=== PATIENT | male | born 1960 | race Caucasian/White ===

== ENCOUNTER 2019-10-19 07:37 | Inpatient (IN) | payer BC ==
[2019-10-19] MEDS ORDERED: Sodium Chloride 0.9% 10 ML Syringe FLUSH PRN ×2 (08:12→08:13)
[2019-10-19] MEDS ORDERED: Piperacillin/Tazobactam 3.375 GM in Sodium Chloride 0.9% 50 ML IV SCH (08:15)
[2019-10-19] MEDS ORDERED: Lactated Ringers 1,000 ML IV SCH (08:15)
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
[2019-10-19] MEDS: Piperacillin/Tazobactam/Dext 3.375 GM in Premix Bag 1 BAG IV SCH ×3 (08:51→19:53)
[2019-10-19] MEDS ORDERED: Vancomycin 2 GM in Sodium Chloride 0.9% 500 ML IV SCH (09:30)
[2019-10-19] MEDS ORDERED: Lactated Ringers 1,000 ML IV ONE ×2 (10:19→11:26)
[2019-10-19] MEDS ORDERED: Acetaminophen/HYDROcodone 325-7.5 MG Tab PO STA (10:29)
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
[2019-10-19] MEDS ORDERED: Ondansetron 4 MG/2 ML SDV IV PRN (15:17)
[2019-10-19] MEDS ORDERED: Sodium Chloride 0.9% 1,000 ML IV SCH (15:17)
[2019-10-19] MEDS ORDERED: Warfarin 5 MG Tab PO SCH (15:17)
[2019-10-19] MEDS ORDERED: Magnesium Hydroxide 400 MG/5 ML Susp 30 ML Cup PO PRN (15:17)
[2019-10-19] MEDS ORDERED: LORazepam 2 MG/ML SDV IVPUSH PRN (15:17)
[2019-10-19] MEDS ORDERED: Ibuprofen 600 MG Tab PO PRN (15:17)
[2019-10-19] MEDS ORDERED: Ondansetron 4 MG Tab.DIS PO PRN (15:17)
[2019-10-19] MEDS ORDERED: HYDROmorphone 0.5 MG/0.5 ML Syringe IVPUSH PRN (15:45)
[2019-10-19] MEDS: Nicotine 21 MG/24 Hr Patch TRDERM SCH (16:29)
[2019-10-19] MEDS: Furosemide 40 MG Tab PO SCH (16:32)
[2019-10-19] MEDS: metFORMIN 500 MG Tab PO SCH (16:32)
[2019-10-19] MEDS: Lactobacillus Rhamnosus GG (Probiotic) Cap PO SCH (20:05)
[2019-10-19] MEDS ORDERED: Simvastatin 20 MG Tab PO SCH (21:00)
[2019-10-19] MEDS: Vancomycin 2 GM in Sodium Chloride 0.9% 500 ML IV SCH (21:31)
[2019-10-20] MEDS: Piperacillin/Tazobactam/Dext 3.375 GM in Premix Bag 1 BAG IV SCH ×4 (03:03→19:40)
[2019-10-20] MEDS: Furosemide 40 MG Tab PO SCH ×2 (07:52→17:10)
[2019-10-20] MEDS: metFORMIN 500 MG Tab PO SCH ×2 (07:52→17:11)
[2019-10-20] MEDS: Acetaminophen/HYDROcodone 325-7.5 MG Tab PO PRN ×2 (07:56→19:39)
[2019-10-20] MEDS ORDERED: Non-Formulary Medication 1 Each (Simvastatin [Simvastatin] 10 MG) PO SCH (09:00)
[2019-10-20] MEDS ORDERED: Non-Formulary Medication 1 Each (Sitagliptin [Januvia] 100 MG) PO SCH (09:00)
[2019-10-20] MEDS: Vancomycin 2 GM in Sodium Chloride 0.9% 500 ML IV SCH ×2 (09:19→21:23)
[2019-10-20] MEDS: Lactobacillus Rhamnosus GG (Probiotic) Cap PO SCH ×2 (09:19→21:23)
[2019-10-20] MEDS: Nicotine 21 MG/24 Hr Patch TRDERM SCH (09:20)
[2019-10-20] MEDS: Aspirin 81 MG Tab.Chew PO SCH (09:20)
[2019-10-20] MEDS: Lisinopril 5 MG Tab PO SCH (09:29)
[2019-10-20] MEDS: Simvastatin 20 MG Tab PO SCH (09:29)
--- NOTE | 2019-10-20 10:10 | PCM.PN ---
- General Info Date of Service: 10/20/19 Subjective Update: No acute events overnight. He did have some low-grade fevers. Pain in his feet and lower legs is better today and he was able to stand with less pain. Legs were wrapped with Coban yesterday and swelling is a little better but still has significant swelling. Cultures are negative so far. Tolerating antibiotics. No nausea or abdominal pain. White blood cell count has improved. Functional Status: Reports: Pain Controlled, Tolerating Diet - Review of Systems General: Denies: Fever Musculoskeletal: Reports: Leg Pain, Foot Pain - Patient Data Vitals - Most Recent: Last Vital Signs Temp 36.3 C 10/20/19 07:43 Pulse 85 10/20/19 07:43 Resp 16 10/20/19 07:43 BP 115/53 L 10/20/19 09:29 Pulse Ox 91 L 10/20/19 07:43 Weight - Most Recent: 136.078 kg I&O - Last 24 Hours: Intake & Output 10/19/19 10/20/19 10/20/19 22:59 06:59 14:59 Intake Total 550 1245 1380 Output Total 1300 500 Balance -886 423 1423 Lab Results Last 24 Hours: Laboratory Results - last 24 hr 10/19/19 10/20/19 10/20/19 Range/Units 10:30 05:53 05:53 WBC 9.2 (4.5-11.0) K/uL RBC 4.32 (4.30-5.90) M/uL Hgb 12.2 (12.0-15.0) g/dL Hct 38.9 L (40.0-54.0) % MCV 90 (80-98) fL MCH 28 (27-31) pg MCHC 31 L (32-36) % Plt Count 264 (150-400) K/uL PT 27.4 H (9.5-12.0) sec INR 2.68 H (0.80-1.20) Sodium (140-148) mmol/L Potassium (3.6-5.2) mmol/L Chloride (100-108) mmol/L Carbon Dioxide (21-32) mmol/L Anion Gap (5.0-14.0) mmol/L BUN (7-18) mg/dL Creatinine (0.8-1.3) mg/dL Est Cr Clr Drug Dosing mL/min Estimated GFR (MDRD) (>60) Glucose (74-106) mg/dL Calcium (8.5-10.1) mg/dL Urine Color Yellow (YELLOW) Urine Appearance Clear (CLEAR) Urine pH 5.5 (5.0-8.0) Ur Specific [place] 1.015 (1.008-1.030) Urine Protein Negative (NEGATIVE) mg/dL Urine Glucose (UA) Negative (NEGATIVE) mg/dL Urine Ketones Negative (NEGATIVE) mg/dL Urine Occult Blood Moderate H (NEGATIVE) Urine Nitrite Negative (NEGATIVE) Urine Bilirubin Negative (NEGATIVE) Urine Urobilinogen 0.2 (0.2-1.0) EU/dL Ur Leukocyte Esterase Negative (NEGATIVE) Urine RBC 5-10 H (0-5) Urine WBC Not seen (0-5) Ur Epithelial Cells Not seen Amorphous Sediment Few Urine Bacteria Not seen Urine Mucus Not seen Urine Other See note 10/20/19 Range/Units 05:53 WBC (4.5-11.0) K/uL RBC (4.30-5.90) M/uL Hgb (12.0-15.0) g/dL Hct (40.0-54.0) % MCV (80-98) fL MCH (27-31) pg MCHC (32-36) % Plt Count (150-400) K/uL PT (9.5-12.0) sec INR (0.80-1.20) Sodium 139 L (140-148) mmol/L Potassium 3.9 (3.6-5.2) mmol/L Chloride 104 (100-108) mmol/L Carbon Dioxide 28 (21-32) mmol/L Anion Gap 10.9 (5.0-14.0) mmol/L BUN 12 D (7-18) mg/dL Creatinine 0.8 (0.8-1.3) mg/dL Est Cr Clr Drug Dosing 104.27 mL/min Estimated GFR (MDRD) > 60 (>60) Glucose 95 (74-106) mg/dL Calcium 8.1 L (8.5-10.1) mg/dL Urine Color (YELLOW) Urine Appearance (CLEAR) Urine pH (5.0-8.0) Ur Specific [place] (1.008-1.030) Urine Protein (NEGATIVE) mg/dL Urine Glucose (UA) (NEGATIVE) mg/dL Urine Ketones (NEGATIVE) mg/dL Urine Occult Blood (NEGATIVE) Urine Nitrite (NEGATIVE) Urine Bilirubin (NEGATIVE) Urine Urobilinogen (0.2-1.0) EU/dL Ur Leukocyte Esterase (NEGATIVE) Urine RBC (0-5) Urine WBC (0-5) Ur Epithelial Cells Amorphous Sediment Urine Bacteria Urine Mucus Urine Other Manuel Results Last 24 Hours: Microbiology 10/19/19 08:28 Aerobic Blood Culture - Preliminary Blood - Arm, Right NO GROWTH AFTER 1 DAY Anaerobic Blood Culture - Preliminary NO GROWTH AFTER 1 DAY 10/19/19 08:20 Aerobic Blood Culture - Preliminary Blood - Venous NO GROWTH AFTER 1 DAY Anaerobic Blood Culture - Preliminary NO GROWTH AFTER 1 DAY Med Orders - Current: Current Medications Hydrocodone Bitart/Acetaminophen ([place] 325-7.5 Mg) 1 tab PO Q4H PRN PRN Reason: Pain Last Admin: 10/20/19 07:56 Dose: 1 tab Alogliptin Benzoate (Alogliptin) 25 mg PO DAILY [facility] Last Admin: 10/20/19 09:19 Dose: 25 mg Aspirin (Aspirin) 81 mg PO DAILY [facility] Last Admin: 10/20/19 09:20 Dose: 81 mg Furosemide (Lasix) 40 mg PO BID@0800,1500 [facility] Last Admin: 10/20/19 07:52 Dose: 40 mg Glyburide (Micronase) 5 mg PO BIDMEALS [facility] Last Admin: 10/20/19 07:52 Dose: 5 mg Hydromorphone HCl (Dilaudid) 0.5 mg IVPUSH Q2H PRN PRN Reason: SEVERE PAIN (7-10) Sodium Chloride (Normal Saline) 1,000 mls @ 25 mls/hr IV ASDIRECTED [facility] Last Admin: 10/19/19 16:28 Dose: 25 mls/hr Piperacillin/Tazobactam/ (Dextrose 3.375 gm/ Premix) 50 mls @ 100 mls/hr IV Q6H [facility] Last Admin: 10/20/19 07:57 Dose: 100 mls/hr Vancomycin HCl 2 gm/ Sodium (Chloride) 500 mls @ 250 mls/hr IV Q12H [facility] Last Admin: 10/20/19 09:19 Dose: 250 mls/hr Ibuprofen (Motrin) 600 mg PO Q6H PRN PRN Reason: Pain/Fever Lactobacillus Rhamnosus (Culturelle) 1 cap PO BID [facility] Last Admin: 10/20/19 09:19 Dose: 1 cap Lisinopril (Prinivil) 5 mg PO DAILY [facility] Last Admin: 10/20/19 09:29 Dose: 5 mg Lorazepam (Ativan) 0.5 mg IVPUSH Q4H PRN PRN Reason: Nausea/Vomiting Magnesium Hydroxide (Milk Of Magnesia) 30 ml PO Q12H PRN PRN Reason: Constipation Metformin HCl (Glucophage) 500 mg PO BIDMEALS [facility] Last Admin: 10/20/19 07:52 Dose: 500 mg Nicotine (Habitrol) 21 mg TRDERM DAILY [facility] Last Admin: 10/20/19 09:20 Dose: 21 mg Ondansetron HCl (Zofran Odt) 4 mg PO Q6H PRN PRN Reason: Nausea able to take PO Ondansetron HCl (Zofran) 4 mg IV Q6H PRN PRN Reason: Nausea/Vomiting Senna/Docusate Sodium (Senna Plus) 1 tab PO BID PRN PRN Reason: Constipation Simvastatin (Zocor) 10 mg PO DAILY [facility] Last Admin: 10/20/19 09:29 Dose: 10 mg Sodium Chloride (Saline Flush) 10 ml FLUSH ASDIRECTED PRN PRN Reason: Keep Vein Open Last Admin: 10/19/19 08:32 Dose: 10 ml Warfarin Sodium 2.5 mg/ (Warfarin Sodium 5 mg) 7.5 mg PO DAILY@1300 [facility] Discontinued Medications Hydrocodone Bitart/Acetaminophen ([place] 325-7.5 Mg) 1 tab PO NOW STA Stop: 10/19/19 10:30 Last Admin: 10/19/19 10:42 Dose: 1 tab Lactated Ringer's (Ringers, Lactated) 1,000 mls @ 999 mls/hr IV ASDIRECTED [facility] Last Admin: 10/19/19 08:30 Dose: 999 mls/hr Piperacillin/Tazobactam/ (Dextrose 3.375 gm/ Premix) 50 mls @ 100 mls/hr IV Q6H [facility] Last Admin: 10/19/19 14:26 Dose: 100 mls/hr Vancomycin HCl 2 gm/ Sodium (Chloride) 500 mls @ 300 mls/hr IV Q12H [facility] Last Admin: 10/19/19 08:59 Dose: 300 mls/hr Lactated Ringer's (Ringers, Lactated) 1,000 mls @ 999 mls/hr IV BOLUS ONE Stop: 10/19/19 11:19 Last Admin: 10/19/19 10:23 Dose: 999 mls/hr Lactated Ringer's (Ringers, Lactated) 1,000 mls @ 125 mls/hr IV BOLUS ONE Stop: 10/19/19 19:25 Last Admin: 10/19/19 11:28 Dose: 125 mls/hr Sodium Chloride (Saline Flush) 10 ml FLUSH ASDIRECTED PRN PRN Reason: Keep Vein Open Last Admin: 10/19/19 08:31 Dose: 10 ml - Exam Quality Assessment: No: Supplemental Oxygen General: Alert, Oriented, Cooperative, No Acute Distress Lungs: Normal Respiratory Effort Cardiovascular: Regular Rate, Regular Rhythm GI/Abdominal Exam: Soft, No Distention Extremities: Other (both lower legs wrapped with Coban from below the knee to the toes ) Psy/Mental Status: Alert, Normal Affect - Problem List & Annotations (1) Cellulitis of right lower extremity SNOMED Code(s): 328002185 Code(s): L03.115 - CELLULITIS OF RIGHT LOWER LIMB Status: Acute Current Visit: Yes (2) Lymphedema SNOMED Code(s): 716393000 Code(s): I89.0 - LYMPHEDEMA, NOT ELSEWHERE CLASSIFIED Status: Acute Current Visit: Yes (3) DM II (diabetes mellitus, type II), controlled SNOMED Code(s): 55814622, 044421258 Code(s): E11.9 - TYPE 2 DIABETES MELLITUS WITHOUT COMPLICATIONS Status: Chronic Current Visit: Yes Qualifiers: Diabetes mellitus long winder tender insulin use: without long winder tender use Diabetes mellitus complication status: with neurologic complications Diabetes mellitus complication detail: with polyneuropathy Qualified Code(s): E11.42 - Type 2 diabetes mellitus with diabetic polyneuropathy (4) Tobacco dependence SNOMED Code(s): 15259240 Code(s): F17.200 - NICOTINE DEPENDENCE, UNSPECIFIED, UNCOMPLICATED Status: Chronic Current Visit: Yes - Problem List Review Problem List Initiated/Reviewed/Updated: Yes - My Orders Last 24 Hours: My Active Orders 10/19/19 14:35 Resuscitation Status Routine 10/19/19 15:17 Patient Status [ADT] Routine Communication Order [RC] PRN Communication Order [RC] PRN Diabetes Education [RC] Click to Edit Intake and Output [RC] QSHIFT Notify Provider Consults [RC] ASDIRECTED Notify Provider Vital Signs [RC] ASDIRECTED Notify Provider [RC] PRN Oxygen Therapy [RC] PRN Up With Assistance [RC] ASDIRECTED Vital Signs [RC] Q4H Consult to Physician [CONS] Routine Acetaminophen/HYDROcodone [[place] 325-7.5 MG] 1 tab PO Q4H PRN Docusate Sodium/Sennosides [Senna Plus] 1 tab PO BID PRN Ibuprofen [Motrin] 600 mg PO Q6H PRN LORazepam [Ativan] 0.5 mg IVPUSH Q4H PRN Magnesium Hydroxide [Milk of Magnesia] 30 ml PO Q12H PRN Ondansetron [Zofran ODT] 4 mg PO Q6H PRN Ondansetron [Zofran] 4 mg IV Q6H PRN Sodium Chloride 0.9% [Normal Saline] 1,000 ml IV ASDIRECTED VTE Mechanical Contraindications [AST] Routine 10/19/19 15:45 HYDROmorphone [Dilaudid] 0.5 mg IVPUSH Q2H PRN 10/19/19 16:15 Furosemide [Lasix] 40 mg PO BID@0800,1500 Nicotine [Habitrol] 21 mg TRDERM DAILY 10/19/19 17:00 glyBURIDE [Micronase] 5 mg PO BIDMEALS metFORMIN [Glucophage] 500 mg PO BIDMEALS 10/19/19 21:00 Lactobacillus Rhamnosus GG [Culturelle] 1 cap PO BID 10/19/19 Dinner Consistent Carbohydrate Diet [DIET] 10/20/19 09:00 Alogliptin Benzoate [Alogliptin] 25 mg PO DAILY Aspirin 81 mg PO DAILY Lisinopril [Prinivil] 5 mg PO DAILY Simvastatin [Zocor] 10 mg PO DAILY 10/20/19 13:00 Warfarin [Coumadin] 7.5 mg PO DAILY@1300 10/20/19 17:00 GLUCOSE POC LAB TO COLLECT [POC] BIDAC 10/21/19 05:00 BASIC METABOLIC PANEL,BMP [CHEM] Timed CBC W/O DIFF,HEMOGRAM [HEME] Timed (1) INR,PT,PROTHROMBIN TIME [COAG] Timed 10/21/19 08:00 GLUCOSE POC LAB TO COLLECT [POC] BIDAC 10/21/19 17:00 GLUCOSE POC LAB TO COLLECT [POC] BIDAC 10/22/19 08:00 GLUCOSE POC LAB TO COLLECT [POC] BIDAC 10/22/19 17:00 GLUCOSE POC LAB TO COLLECT [POC] BIDAC 10/23/19 08:00 GLUCOSE POC LAB TO COLLECT [POC] BIDAC 10/23/19 17:00 GLUCOSE POC LAB TO COLLECT [POC] BIDAC - Plan Plan:: ASSESSMENT AND PLAN - Cellulitis of the right lower extremity-likely complication of his lymphedema. Pain has decreased. Only low-grade fevers overnight. Blood cultures negative so far. 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 INR is currently therapeutic. He has lymphedema as a result of the venous damage I suspect. -Consult with Dr. Lee for wound care -Continue warfarin Type 2 diabetes mellitus-controlled during the hospital stay so far. -Continue home medications -Twice daily Accu-Cheks, consider sliding scale if sugars are elevated Tobacco dependence-encourage cessation. -Nicotine patch Maintenance issues - - DVT prophylaxis -warfarin - GI prophylaxis -not indicated - Nutrition - consistent carbohydrate - Rivas catheter -not indicated Disposition -I would anticipate discharge home after the hospital stay Primary care physician -Dr. Fred Win M.D.
[2019-10-20] MEDS: Warfarin 2.5 MG, Warfarin 5 MG PO SCH ×2 (13:51)
[2019-10-21] MEDS: Piperacillin/Tazobactam/Dext 3.375 GM in Premix Bag 1 BAG IV SCH ×3 (03:08→14:25)
[2019-10-21] MEDS: metFORMIN 500 MG Tab PO SCH ×2 (07:54→17:38)
[2019-10-21] MEDS: Furosemide 40 MG Tab PO SCH (07:55)
[2019-10-21] MEDS: Acetaminophen/HYDROcodone 325-7.5 MG Tab PO PRN ×3 (07:57→22:50)
[2019-10-21] MEDS: Nicotine 21 MG/24 Hr Patch TRDERM SCH (08:52)
[2019-10-21] MEDS: Aspirin 81 MG Tab.Chew PO SCH (08:53)
[2019-10-21] MEDS: Lactobacillus Rhamnosus GG (Probiotic) Cap PO SCH ×2 (08:53→20:28)
[2019-10-21] MEDS: Lisinopril 5 MG Tab PO SCH (08:53)
[2019-10-21] MEDS: Simvastatin 20 MG Tab PO SCH (08:54)
[2019-10-21] MEDS ORDERED: Potassium Chloride 20 MEQ Tab.ER PO ONE (09:00)
[2019-10-21] MEDS: Vancomycin 2 GM in Sodium Chloride 0.9% 500 ML IV SCH (09:28)
--- NOTE | 2019-10-21 10:04 | PCM.PN ---
- General Info Date of Service: 10/21/19 Subjective Update: There were no acute events overnight. Pain in the lower legs and feet has continued to improve. He is able to stand without severe pain at this time. He has not had any fevers. Swelling seems a little better today. White count is normal. Cultures are negative. Tolerating current antibiotics. Blood sugar was a little low this morning but did respond to food. Functional Status: Reports: Pain Controlled, Tolerating Diet - Review of Systems General: Denies: Fever Musculoskeletal: Reports: Foot Pain - Patient Data Vitals - Most Recent: Last Vital Signs Temp 36.7 C 10/21/19 07:00 Pulse 66 10/21/19 07:00 Resp 14 10/21/19 07:00 BP 118/65 10/21/19 09:32 Pulse Ox 97 10/21/19 07:00 Weight - Most Recent: 136.078 kg I&O - Last 24 Hours: Intake & Output 10/20/19 10/21/19 10/21/19 22:59 06:59 14:59 Intake Total 1059 1288 1022 Output Total 1100 1300 750 Balance -41 -12 272 Lab Results Last 24 Hours: Laboratory Results - last 24 hr 10/21/19 10/21/19 10/21/19 Range/Units 04:10 04:10 04:10 WBC 9.4 (4.5-11.0) K/uL RBC 4.50 (4.30-5.90) M/uL Hgb 12.4 (12.0-15.0) g/dL Hct 40.9 (40.0-54.0) % MCV 91 (80-98) fL MCH 28 (27-31) pg MCHC 30 L (32-36) % Plt Count 277 (150-400) K/uL PT 21.0 H (9.5-12.0) sec INR 2.02 H (0.80-1.20) Sodium 138 L (140-148) mmol/L Potassium 3.3 L (3.6-5.2) mmol/L Chloride 102 (100-108) mmol/L Carbon Dioxide 29 (21-32) mmol/L Anion Gap 10.3 (5.0-14.0) mmol/L BUN 8 (7-18) mg/dL Creatinine 0.8 (0.8-1.3) mg/dL Est Cr Clr Drug Dosing 104.27 mL/min Estimated GFR (MDRD) > 60 (>60) Glucose 80 (74-106) mg/dL Calcium 7.9 L (8.5-10.1) mg/dL Manuel Results Last 24 Hours: Microbiology 10/19/19 08:28 Aerobic Blood Culture - Preliminary Blood - Arm, Right NO GROWTH AFTER 2 DAYS Anaerobic Blood Culture - Preliminary NO GROWTH AFTER 2 DAYS 10/19/19 08:20 Aerobic Blood Culture - Preliminary Blood - Venous NO GROWTH AFTER 2 DAYS Anaerobic Blood Culture - Preliminary NO GROWTH AFTER 2 DAYS Med Orders - Current: Current Medications Hydrocodone Bitart/Acetaminophen ([place] 325-7.5 Mg) 1 tab PO Q4H PRN PRN Reason: Pain Last Admin: 10/21/19 07:57 Dose: 1 tab Alogliptin Benzoate (Alogliptin) 25 mg PO DAILY [facility] Last Admin: 10/21/19 08:53 Dose: 25 mg Aspirin (Aspirin) 81 mg PO DAILY [facility] Last Admin: 10/21/19 08:53 Dose: 81 mg Furosemide (Lasix) 40 mg PO BID@0800,1500 [facility] Last Admin: 10/21/19 07:55 Dose: 40 mg Glyburide (Micronase) 5 mg PO BIDMEALS [facility] Last Admin: 10/21/19 07:55 Dose: 5 mg Hydromorphone HCl (Dilaudid) 0.5 mg IVPUSH Q2H PRN PRN Reason: SEVERE PAIN (7-10) Sodium Chloride (Normal Saline) 1,000 mls @ 25 mls/hr IV ASDIRECTED [facility] Last Admin: 10/19/19 16:28 Dose: 25 mls/hr Piperacillin/Tazobactam/ (Dextrose 3.375 gm/ Premix) 50 mls @ 100 mls/hr IV Q6H [facility] Last Admin: 10/21/19 08:41 Dose: 100 mls/hr Vancomycin HCl 2 gm/ Sodium (Chloride) 500 mls @ 250 mls/hr IV Q12H [facility] Last Admin: 10/21/19 09:28 Dose: 250 mls/hr Ibuprofen (Motrin) 600 mg PO Q6H PRN PRN Reason: Pain/Fever Lactobacillus Rhamnosus (Culturelle) 1 cap PO BID [facility] Last Admin: 10/21/19 08:53 Dose: 1 cap Lisinopril (Prinivil) 5 mg PO DAILY [facility] Last Admin: 10/21/19 08:53 Dose: 5 mg Lorazepam (Ativan) 0.5 mg IVPUSH Q4H PRN PRN Reason: Nausea/Vomiting Magnesium Hydroxide (Milk Of Magnesia) 30 ml PO Q12H PRN PRN Reason: Constipation Metformin HCl (Glucophage) 500 mg PO BIDMEALS [facility] Last Admin: 10/21/19 07:54 Dose: 500 mg Nicotine (Habitrol) 21 mg TRDERM DAILY [facility] Last Admin: 10/21/19 08:52 Dose: 21 mg Ondansetron HCl (Zofran Odt) 4 mg PO Q6H PRN PRN Reason: Nausea able to take PO Ondansetron HCl (Zofran) 4 mg IV Q6H PRN PRN Reason: Nausea/Vomiting Senna/Docusate Sodium (Senna Plus) 1 tab PO BID PRN PRN Reason: Constipation Simvastatin (Zocor) 10 mg PO DAILY [facility] Last Admin: 10/21/19 08:54 Dose: 10 mg Sodium Chloride (Saline Flush) 10 ml FLUSH ASDIRECTED PRN PRN Reason: Keep Vein Open Last Admin: 10/19/19 08:32 Dose: 10 ml Warfarin Sodium 2.5 mg/ (Warfarin Sodium 5 mg) 7.5 mg PO DAILY@1300 [facility] Last Admin: 10/20/19 13:51 Dose: 7.5 mg Discontinued Medications Hydrocodone Bitart/Acetaminophen ([place] 325-7.5 Mg) 1 tab PO NOW STA Stop: 10/19/19 10:30 Last Admin: 10/19/19 10:42 Dose: 1 tab Lactated Ringer's (Ringers, Lactated) 1,000 mls @ 999 mls/hr IV ASDIRECTED [facility] Last Admin: 10/19/19 08:30 Dose: 999 mls/hr Piperacillin/Tazobactam/ (Dextrose 3.375 gm/ Premix) 50 mls @ 100 mls/hr IV Q6H [facility] Last Admin: 10/19/19 14:26 Dose: 100 mls/hr Vancomycin HCl 2 gm/ Sodium (Chloride) 500 mls @ 300 mls/hr IV Q12H [facility] Last Admin: 10/19/19 08:59 Dose: 300 mls/hr Lactated Ringer's (Ringers, Lactated) 1,000 mls @ 999 mls/hr IV BOLUS ONE Stop: 10/19/19 11:19 Last Admin: 10/19/19 10:23 Dose: 999 mls/hr Lactated Ringer's (Ringers, Lactated) 1,000 mls @ 125 mls/hr IV BOLUS ONE Stop: 10/19/19 19:25 Last Admin: 10/19/19 11:28 Dose: 125 mls/hr Potassium Chloride (Klor-Con M20) 40 meq PO ONETIME ONE Stop: 10/21/19 09:01 Last Admin: 10/21/19 09:01 Dose: 40 meq Sodium Chloride (Saline Flush) 10 ml FLUSH ASDIRECTED PRN PRN Reason: Keep Vein Open Last Admin: 10/19/19 08:31 Dose: 10 ml - Exam Quality Assessment: No: Supplemental Oxygen General: Alert, Oriented, Cooperative, No Acute Distress Lungs: Normal Respiratory Effort Cardiovascular: Regular Rate, Regular Rhythm GI/Abdominal Exam: Soft, No Distention Extremities: Pedal Edema, Other (both legs wrapped with Coban from foot to below the knee ) Skin: Warm, Dry Psy/Mental Status: Alert, Normal Affect - Problem List & Annotations (1) Cellulitis of right lower extremity SNOMED Code(s): 074016804 Code(s): L03.115 - CELLULITIS OF RIGHT LOWER LIMB Status: Acute Current Visit: Yes (2) Lymphedema SNOMED Code(s): 585723676 Code(s): I89.0 - LYMPHEDEMA, NOT ELSEWHERE CLASSIFIED Status: Acute Current Visit: Yes (3) DM II (diabetes mellitus, type II), controlled SNOMED Code(s): 99546295, 648348770 Code(s): E11.9 - TYPE 2 DIABETES MELLITUS WITHOUT COMPLICATIONS Status: Chronic Current Visit: Yes Qualifiers: Diabetes mellitus turkish line attendant insulin use: without usp use Diabetes mellitus complication status: with neurologic complications Diabetes mellitus complication detail: with polyneuropathy Qualified Code(s): E11.42 - Type 2 diabetes mellitus with diabetic polyneuropathy (4) Tobacco dependence SNOMED Code(s): 01511819 Code(s): F17.200 - NICOTINE DEPENDENCE, UNSPECIFIED, UNCOMPLICATED Status: Chronic Current Visit: Yes - Problem List Review Problem List Initiated/Reviewed/Updated: Yes - My Orders Last 24 Hours: My Active Orders 10/20/19 13:00 Warfarin [Coumadin] 7.5 mg PO DAILY@1300 10/21/19 17:00 GLUCOSE POC LAB TO COLLECT [POC] BIDAC 10/21/19 21:00 Doxycycline [Vibramycin] 100 mg PO BID 10/22/19 05:00 BASIC METABOLIC PANEL,BMP [CHEM] Timed CBC W/O DIFF,HEMOGRAM [HEME] Timed (1) INR,PT,PROTHROMBIN TIME [COAG] Timed 10/22/19 08:00 GLUCOSE POC LAB TO COLLECT [POC] BIDAC 10/22/19 09:00 Furosemide [Lasix] 40 mg PO DAILY 10/22/19 17:00 GLUCOSE POC LAB TO COLLECT [POC] BIDAC 10/23/19 08:00 GLUCOSE POC LAB TO COLLECT [POC] BIDAC 10/23/19 17:00 GLUCOSE POC LAB TO COLLECT [POC] BIDAC - Plan Plan:: ASSESSMENT AND PLAN - Cellulitis of the right lower extremity-likely complication of his lymphedema. Pain has decreased. No fevers. Cultures still negative. Clinically improving. 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 INR is currently therapeutic. He has lymphedema as a result of the venous damage I suspect. -Consult with Dr. Lee for wound care, planning to re-wrap legs today -Continue warfarin Type 2 diabetes mellitus-mild hypoglycemia this morning but improving with food. -Continue metformin -Hold glyburide -Twice daily Accu-Cheks, consider sliding scale if sugars are elevated Tobacco dependence-encourage cessation. -Nicotine patch Maintenance issues - - DVT prophylaxis -warfarin - GI prophylaxis -not indicated - Nutrition - consistent carbohydrate - Rivas catheter -not indicated Disposition -I would anticipate discharge home after the hospital stay Primary care physician -Dr. Fred Win M.D.
[2019-10-21] MEDS: Warfarin 2.5 MG, Warfarin 5 MG PO SCH ×2 (13:13)
--- NOTE | 2019-10-21 16:20 | PN ---
DATE OF SERVICE: 10/21/2019 SUBJECTIVE: The patient continues to improve. His pain is well controlled. No nausea, vomiting, shortness of breath, chest pain. Legs are healing quite well. No evidence of cellulitis. ASSESSMENT: Lipodermatosclerosis/venous ulcers. PLAN: We will recompression wrap him today. He is to leave this on until , which he will follow up with us to remove and all dressings on morning. Shower, soap and water. Report to clinic for probable re-dressing. Mehdi Lee MD /[id number]
[2019-10-21] MEDS: Doxycycline 100 MG Cap PO SCH (20:28)
[2019-10-22] MEDS: metFORMIN 500 MG Tab PO SCH (08:29)
[2019-10-22] MEDS: Nicotine 21 MG/24 Hr Patch TRDERM SCH (08:30)
[2019-10-22] MEDS: Lactobacillus Rhamnosus GG (Probiotic) Cap PO SCH (08:30)
[2019-10-22] MEDS: Aspirin 81 MG Tab.Chew PO SCH (08:30)
[2019-10-22] MEDS: Lisinopril 5 MG Tab PO SCH (08:31)
[2019-10-22] MEDS: Simvastatin 20 MG Tab PO SCH (08:35)
[2019-10-22] MEDS: Doxycycline 100 MG Cap PO SCH (08:35)
[2019-10-22] MEDS ORDERED: Furosemide 40 MG Tab PO SCH (09:00)
--- NOTE | 2019-10-22 09:54 | PCM.DCSUM1 ---
Discharge Summary - Hospital Course Brief History: 59-year-old male with history of tobacco dependence, type 2 diabetes mellitus that is uncontrolled and chronic edema of both lower extremities who presented with syncope. He was admitted for management of right lower extremity cellulitis and chronic edema management. Diagnosis: Stroke: No - Discharge Data Discharge Date: 10/22/19 Discharge Disposition: Home, Self-Care 01 Condition: Good - Referral to Home Health Primary Care Physician: PCP None - Discharge Diagnosis/Problem(s) (1) Cellulitis of right lower extremity SNOMED Code(s): 969037769 ICD Code: L03.115 - CELLULITIS OF RIGHT LOWER LIMB Status: Acute Current Visit: Yes (2) Lymphedema SNOMED Code(s): 168536768 ICD Code: I89.0 - LYMPHEDEMA, NOT ELSEWHERE CLASSIFIED Status: Acute Current Visit: Yes (3) DM II (diabetes mellitus, type II), controlled SNOMED Code(s): 19904732, 404085896 ICD Code: E11.9 - TYPE 2 DIABETES MELLITUS WITHOUT COMPLICATIONS Status: Chronic Current Visit: Yes Qualifiers: Diabetes mellitus [facility] insulin use: without [facility] use Diabetes mellitus complication status: with neurologic complications Diabetes mellitus complication detail: with polyneuropathy Qualified Code(s): E11.42 - Type 2 diabetes mellitus with diabetic polyneuropathy (4) Tobacco dependence SNOMED Code(s): 93880473 ICD Code: F17.200 - NICOTINE DEPENDENCE, UNSPECIFIED, UNCOMPLICATED Status : Chronic Current Visit: Yes - Patient Summary/Data Consults: Consultations 10/19/19 15:17 Consult to Physician [CONS] Routine Consulting Provider: Mehdi Lee Call Completed to Consulting Physician: Yes Reason for Consult: bilateral edema, lymphedema Person Notified: RW Date Notified: 10/19/19 Hospital Course: Michael presented to the emergency room after an episode of syncope at work. Work- up in the emergency room was suggestive of acute cellulitis of the right lower extremity complicating chronic edema of both lower extremities. He had severe pain from the significant swelling and inflammation/infection. There was no evidence for sepsis at the time of presentation. He received IV fluids and cultures were obtained. He was started on broad-spectrum antibiotics including vancomycin and Pip/Tazo. He was admitted to the hospital for further management. We did consult Dr. Lee shortly after admission to help with chronic wound management. He applied Coban 2 wrapping system to both lower extremities from the feet up to just below the knee. Over the next 48 hours following admission we did see steady improvement. The swelling in both legs improved with the Coban wrapping system. He has had a couple of low-grade fevers but no true fevers. Cultures have all been negative. Pain has been steadily improving. His white blood cell count has normalized. He did have a couple of low morning blood sugars but these responded quickly to glucose administration. We did hold his sulfonylurea during the hospital stay. On the day of discharge he is feeling well. Pain is minimal at this time and he has been ambulating some. New Coban wraps were applied the day before discharge and will stay in place until his follow-up next . He has been transitioned to doxycycline which he seems to be tolerating well so far. He has follow-up with his primary care scheduled on Friday. INR has remained therapeutic during hospital stay. - Patient Instructions Diet: Diabetic Diet Activity: As Tolerated Showering/Bathing: No Showering (cover lower legs with garbage bag and secure with tape if showering ) Notify Provider of: Fever, Increased Pain, Nausea and/or Vomiting Other/Special Instructions: 1. You were in the hospital for management of cellulitis of the right lower extremity complicating chronic edema of both lower extremities. Your condition has been improving with antibiotic therapy and wrapping of the lower legs with the Coban 2 system. I do recommend ongoing antibiotic therapy with doxycycline. Please take 100 mg twice daily with food. Your next dose is due tonight. You should leave the Coban dressings in place until your follow-up with Dr. Lee next week. If they become loose you can secure them with tape or with Jorge wraps over the top of the Coban wrapping. 2. Follow up with Dr. Ryan next Friday. You should have your INR checked at the time of that visit. 3. Follow up with Dr. Lee next . 4. Continue your usual home medications as previously prescribed including the warfarin. 5. Seek medical attention if you have fever greater than 101, severe pain in your lower extremities, severe diarrhea or if you develop persistent nausea and vomiting. - Discharge Plan *PRESCRIPTION DRUG MONITORING PROGRAM REVIEWED*: No *COPY OF PRESCRIPTION DRUG MONITORING REPORT IN PATIENT MANNY: No Prescriptions/Med Rec: Doxycycline [Vibramycin] 100 mg PO BID #12 cap Nicotine [Habitrol] 21 mg TRDERM DAILY #30 patch Home Medications: Home Meds Aspirin 81 mg PO DAILY 10/19/19 [History] Furosemide 40 mg PO BID 10/19/19 [History] Hydrocodone/Acetaminophen [Hydrocodon-Acetaminoph 7.5-325] 1 tab PO ASDIRECTED PRN 10/19/19 [History] Lisinopril 5 mg PO DAILY 10/19/19 [History] Simvastatin 10 mg PO DAILY 10/19/19 [History] SitaGLIPtin [Januvia] 100 mg PO DAILY 10/19/19 [History] Warfarin [Coumadin] 10 mg PO ASDIRECTED 10/19/19 [History] glyBURIDE [Glyburide] 5 mg PO BID 10/19/19 [History] metFORMIN [Glucophage] 500 mg PO BID 10/19/19 [History] Doxycycline [Vibramycin] 100 mg PO BID #12 cap 10/22/19 [Rx] Nicotine [Habitrol] 21 mg TRDERM DAILY #30 patch 10/22/19 [Rx] Oxygen Therapy Mode: Room Air Patient Handouts: Doxycycline tablets or capsules, Cellulitis, Adult, Easy-to- Read Referrals: Fred Ryan MD [Ordering Only Provider] - 10/25/19 11:00 am (Please arrive 15 minutes early to register for your appointment.) Mehdi Lee MD [Physician] - 10/28/19 1:00 pm (Confirmed appointment with [facility] 10/21/19 at 1600) - Discharge Summary/Plan Comment DC Time >30 min.: No - Patient Data Vitals - Most Recent: Last Vital Signs Temp 36.7 C 10/22/19 07:00 Pulse 68 10/22/19 07:00 Resp 16 10/22/19 07:00 BP 140/77 10/22/19 08:31 Pulse Ox 95 10/22/19 07:00 Weight - Most Recent: 136.078 kg I&O - Last 24 hours: Intake & Output 10/21/19 10/22/19 10/22/19 22:59 06:59 14:59 Intake Total 1200 1254 Balance 1200 1254 Lab Results - Last 24 hrs: Laboratory Results - last 24 hr 10/22/19 10/22/1910/22/19 Range/Units 04:20 04:20 05:00 WBC 9.8 (4.5-11.0) K/uL RBC 4.98 (4.30-5.90) M/uL Hgb 14.0 (12.0-15.0) g/dL Hct 45.0 (40.0-54.0) % MCV 90 (80-98) fL MCH 28 (27-31) pg MCHC 31 L (32-36) % Plt Count 266 (150-400) K/uL PT 25.8 H (9.5-12.0) sec INR 2.52 H (0.80-1.20) Sodium 137 L (140-148) mmol/L Potassium 4.1 (3.6-5.2) mmol/L Chloride 101 (100-108) mmol/L Carbon Dioxide 28 (21-32) mmol/L Anion Gap 12.1 (5.0-14.0) mmol/L BUN 11 (7-18) mg/dL Creatinine 0.8 (0.8-1.3) mg/dL Est Cr Clr Drug Dosing 104.27 mL/min Estimated GFR (MDRD) > 60 (>60) Glucose 70 L (74-106) mg/dL Calcium 8.6 (8.5-10.1) mg/dL CINDY Results - Last 24 hrs: Microbiology 10/19/19 08:28 Aerobic Blood Culture - Preliminary Blood - Arm, Right NO GROWTH AFTER 3 DAYS Anaerobic Blood Culture - Preliminary NO GROWTH AFTER 3 DAYS 10/19/19 08:20 Aerobic Blood Culture - Preliminary Blood - Venous NO GROWTH AFTER 3 DAYS Anaerobic Blood Culture - Preliminary NO GROWTH AFTER 3 DAYS Med Orders - Current: Current Medications Hydrocodone Bitart/Acetaminophen ([place] 325-7.5 Mg) 1 tab PO Q4H PRN PRN Reason: Pain Last Admin: 10/21/19 22:50 Dose: 1 tab Alogliptin Benzoate (Alogliptin) 25 mg PO DAILY [facility] Last Admin: 10/22/19 08:29 Dose: 25 mg Aspirin (Aspirin) 81 mg PO DAILY [facility] Last Admin: 10/22/19 08:30 Dose: 81 mg Doxycycline Hyclate (Vibramycin) 100 mg PO BID [facility] Last Admin: 10/22/19 08:35 Dose: 100 mg Furosemide (Lasix) 40 mg PO DAILY [facility] Last Admin: 10/22/19 08:31 Dose: 40 mg Glyburide (Micronase) 5 mg PO BIDMEALS [facility] Last Admin: 10/21/19 07:55 Dose: 5 mg Hydromorphone HCl (Dilaudid) 0.5 mg IVPUSH Q2H PRN PRN Reason: SEVERE PAIN (7-10) Ibuprofen (Motrin) 600 mg PO Q6H PRN PRN Reason: Pain/Fever Last Admin: 10/21/19 22:51 Dose: 600 mg Lactobacillus Rhamnosus (Culturelle) 1 cap PO BID [facility] Last Admin: 10/22/19 08:30 Dose: 1 cap Lisinopril (Prinivil) 5 mg PO DAILY [facility] Last Admin: 10/22/19 08:31 Dose: 5 mg Lorazepam (Ativan) 0.5 mg IVPUSH Q4H PRN PRN Reason: Nausea/Vomiting Magnesium Hydroxide (Milk Of Magnesia) 30 ml PO Q12H PRN PRN Reason: Constipation Metformin HCl (Glucophage) 500 mg PO BIDMEALS [facility] Last Admin: 10/22/19 08:29 Dose: 500 mg Nicotine (Habitrol) 21 mg TRDERM DAILY [facility] Last Admin: 10/22/19 08:30 Dose: 21 mg Ondansetron HCl (Zofran Odt) 4 mg PO Q6H PRN PRN Reason: Nausea able to take PO Ondansetron HCl (Zofran) 4 mg IV Q6H PRN PRN Reason: Nausea/Vomiting Senna/Docusate Sodium (Senna Plus) 1 tab PO BID PRN PRN Reason: Constipation Simvastatin (Zocor) 10 mg PO DAILY [facility] Last Admin: 10/22/19 08:35 Dose: 10 mg Sodium Chloride (Saline Flush) 10 ml FLUSH ASDIRECTED PRN PRN Reason: Keep Vein Open Last Admin: 10/19/19 08:32 Dose: 10 ml Warfarin Sodium 2.5 mg/ (Warfarin Sodium 5 mg) 7.5 mg PO DAILY@1300 [facility] Last Admin: 10/21/19 13:13 Dose: 7.5 mg Discontinued Medications Hydrocodone Bitart/Acetaminophen ([place] 325-7.5 Mg) 1 tab PO NOW STA Stop: 10/19/19 10:30 Last Admin: 10/19/19 10:42 Dose: 1 tab Furosemide (Lasix) 40 mg PO BID@0800,1500 [facility] Last Admin: 10/21/19 07:55 Dose: 40 mg Lactated Ringer's (Ringers, Lactated) 1,000 mls @ 999 mls/hr IV ASDIRECTED [facility] Last Admin: 10/19/19 08:30 Dose: 999 mls/hr Piperacillin/Tazobactam/ (Dextrose 3.375 gm/ Premix) 50 mls @ 100 mls/hr IV Q6H [facility] Last Admin: 10/19/19 14:26 Dose: 100 mls/hr Vancomycin HCl 2 gm/ Sodium (Chloride) 500 mls @ 300 mls/hr IV Q12H [facility] Last Admin: 10/19/19 08:59 Dose: 300 mls/hr Lactated Ringer's (Ringers, Lactated) 1,000 mls @ 999 mls/hr IV BOLUS ONE Stop: 10/19/19 11:19 Last Admin: 10/19/19 10:23 Dose: 999 mls/hr Lactated Ringer's (Ringers, Lactated) 1,000 mls @ 125 mls/hr IV BOLUS ONE Stop: 10/19/19 19:25 Last Admin: 10/19/19 11:28 Dose: 125 mls/hr Sodium Chloride (Normal Saline) 1,000 mls @ 25 mls/hr IV ASDIRECTED [facility] Last Admin: 10/19/19 16:28 Dose: 25 mls/hr Piperacillin/Tazobactam/ (Dextrose 3.375 gm/ Premix) 50 mls @ 100 mls/hr IV Q6H [facility] Stop: 10/21/19 17:00 Last Admin: 10/21/19 14:25 Dose: 100 mls/hr Vancomycin HCl 2 gm/ Sodium (Chloride) 500 mls @ 250 mls/hr IV Q12H [facility] Stop: 10/21/19 12:00 Last Admin: 10/21/19 09:28 Dose: 250 mls/hr Potassium Chloride (Klor-Con M20) 40 meq PO ONETIME ONE Stop: 10/21/19 09:01 Last Admin: 10/21/19 09:01 Dose: 40 meq Sodium Chloride (Saline Flush) 10 ml FLUSH ASDIRECTED PRN PRN Reason: Keep Vein Open Last Admin: 10/19/19 08:31 Dose: 10 ml - Exam Quality Assessment: Denies: Supplemental Oxygen General: Reports: Alert, Oriented, Cooperative, No Acute Distress Lungs: Reports: Normal Respiratory Effort GI/Abdominal Exam: Soft, No Distention Extremities: Other (Both lower legs wrapped with Coban from the feet to just below the knee) Psy/Mental Status: Reports: Alert, Normal Affect *Q Meaningful Use (DIS) - VTE *Q VTE Mechanical Contraindications *Q: Bilateral Lower Dermatits
== END 2019-10-22 10:30 | disposition home or self-care (01) | DRG 420 ==
LOC: JP.ED 07:37 → JP.MS 14:32
PROVIDERS: ADMIT Internal Medicine; ATTEND Internal Medicine
DX: E11.628 Type 2 diabetes mellitus with other skin complications (principal); L03.115 Cellulitis of right lower limb; I89.0 Lymphedema, not elsewhere classified; E11.42 Type 2 diabetes mellitus with diabetic polyneuropathy; H54.7 Unspecified visual loss; E11.649 Type 2 diabetes mellitus with hypoglycemia without coma; E78.00 Pure hypercholesterolemia, unspecified; I10 Essential (primary) hypertension; G89.29 Other chronic pain; M54.9 Dorsalgia, unspecified; F17.210 Nicotine dependence, cigarettes, uncomplicated; Z87.442 Personal history of urinary calculi; Z86.718 Personal history of other venous thrombosis and embolism; Z79.82 Long term (current) use of aspirin; Z79.01 Long term (current) use of anticoagulants; Z79.84 Long term (current) use of oral hypoglycemic drugs; Z79.899 Other long term (current) drug therapy
CPT/HCPCS: 36415; 80048; 80053; 81001; 82962; 83605; 84145; 85025; 85027; 85610; 86140; 87040; 93005; 96361; 96365; 96366; 96368; 99285-25; A9270-GY; J2543; J3370; J7030; J7040; J7120

== ENCOUNTER 2019-10-26 22:19 | Emergency (ER) | payer BC ==
[2019-10-26] MEDS ORDERED: predniSONE 20 MG Tab PO ONE (23:06)
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
== END 2019-10-26 23:41 | disposition home or self-care (01) ==
LOC: JP.ED 22:19
DX: R21 Rash and other nonspecific skin eruption (principal); I10 Essential (primary) hypertension; E78.00 Pure hypercholesterolemia, unspecified; E11.9 Type 2 diabetes mellitus without complications; Z79.01 Long term (current) use of anticoagulants; Z79.82 Long term (current) use of aspirin; Z79.84 Long term (current) use of oral hypoglycemic drugs; Z79.899 Other long term (current) drug therapy; Z88.1 Allergy status to other antibiotic agents; Z86.718 Personal history of other venous thrombosis and embolism
CPT/HCPCS: 99282; A9270

== ENCOUNTER 2019-11-03 15:29 | Emergency (ER) | payer BC ==
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
[2019-11-03] MEDS ORDERED: Sodium Chloride 0.9% 1,000 ML IV SCH ×2 (16:00→17:30)
== END 2019-11-03 19:47 | disposition home or self-care (01) ==
LOC: JP.ED 15:29
DX: R55 Syncope and collapse (principal); R79.1 Abnormal coagulation profile; I10 Essential (primary) hypertension; E78.00 Pure hypercholesterolemia, unspecified; E11.9 Type 2 diabetes mellitus without complications; Z79.01 Long term (current) use of anticoagulants; Z79.84 Long term (current) use of oral hypoglycemic drugs; Z79.899 Other long term (current) drug therapy; Z79.82 Long term (current) use of aspirin; Z88.1 Allergy status to other antibiotic agents
CPT/HCPCS: 36415; 80053; 81001; 84484; 85025; 85610; 93005; 96360; 96361; 96372; 99284; J3430; J7030

== ENCOUNTER 2019-11-16 16:07 | Inpatient (IN) | payer BC ==
[2019-11-16] MEDS ORDERED: Lactated Ringers 1,000 ML IV ONE (17:11)
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
[2019-11-16] MEDS ORDERED: cefTRIAXone 1 GM in Sodium Chloride 0.9% 50 ML IV ONE (18:20)
[2019-11-16] MEDS ORDERED: Vancomycin 2 GM in Sodium Chloride 0.9% 500 ML IV ONE (18:21)
[2019-11-16] MEDS ORDERED: Vancomycin 1 GM SDV ONE (19:00)
[2019-11-16] MEDS ORDERED: Ondansetron 4 MG/2 ML SDV IVPUSH ONE (19:33)
[2019-11-16] MEDS ORDERED: HYDROmorphone 1 MG/ML Syringe IVPUSH ONE (19:33)
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
[2019-11-16] MEDS ORDERED: Nicotine Polacrilex 2 MG Gum CHEW PRN (20:34)
[2019-11-16] MEDS ORDERED: Acetaminophen/HYDROcodone 325-7.5 MG Tab PO PRN (20:34)
[2019-11-16] MEDS ORDERED: LORazepam 2 MG/ML SDV IV PRN (20:34)
[2019-11-16] MEDS ORDERED: Albuterol 0.083% 2.5 MG/3 ML Neb Soln NEB PRN (20:34)
[2019-11-16] MEDS ORDERED: Nicotine 21 MG/24 Hr Patch TRDERM ONE (20:34)
[2019-11-16] MEDS ORDERED: Ondansetron 4 MG Tab.DIS PO PRN (20:34)
[2019-11-16] MEDS ORDERED: Temazepam 15 MG Cap PO PRN (20:34)
[2019-11-16] MEDS ORDERED: Docusate Sodium 100 MG Cap PO PRN (20:34)
[2019-11-16] MEDS: Insulin Lispro 100 Unit/ML 3 ML KwikPen SUBCUT SCH (21:15)
[2019-11-16] MEDS: Acetaminophen/HYDROcodone 325-7.5 MG Tab PO PRN (21:15)
[2019-11-16] MEDS: Sodium Chloride 0.9% 1,000 ML IV SCH (21:16)
[2019-11-16] MEDS ORDERED: Cyclobenzaprine 10 MG Tab PO PRN (21:20)
[2019-11-16] MEDS: Furosemide 40 MG Tab PO SCH (21:24)
[2019-11-16] MEDS: Acetaminophen 325 MG Tab PO PRN (23:16)
[2019-11-17] MEDS: Sodium Chloride 0.9% 1,000 ML IV SCH (05:28)
[2019-11-17] MEDS: Acetaminophen 325 MG Tab PO PRN (07:45)
[2019-11-17] MEDS: Lisinopril 5 MG Tab PO SCH (08:10)
[2019-11-17] MEDS: Furosemide 40 MG Tab PO SCH (08:10)
[2019-11-17] MEDS: Vancomycin 2 GM in Sodium Chloride 0.9% 500 ML IV SCH ×2 (08:39→20:16)
[2019-11-17] MEDS ORDERED: Non-Formulary Medication 1 Each (Sitagliptin [Januvia] 100 MG) PO SCH (09:00)
[2019-11-17] MEDS ORDERED: Cyclobenzaprine 10 MG Tab PO SCH (09:00)
[2019-11-17] MEDS: Insulin Lispro 100 Unit/ML 3 ML KwikPen SUBCUT SCH ×3 (11:33→21:52)
--- NOTE | 2019-11-17 11:58 | PCM.PN ---
- General Info Date of Service: 11/17/19 Subjective Update: There were no acute events overnight following admission. Patient does not complain of significant pain in either of the legs. He did have a fever overnight after admission. Vital signs have been otherwise stable. Blood sugars have been acceptable. Patient reports that the dizziness and "tunnel vision" have improved with IV fluids provided overnight. No dizziness or lightheadedness. Functional Status: Reports: Pain Controlled, Tolerating Diet - Review of Systems General: Reports: Fever Musculoskeletal: Reports: Leg Pain - Patient Data Vitals - Most Recent: Last Vital Signs Temp 37.8 C 11/17/19 11:32 Pulse 81 11/17/19 11:32 Resp 18 11/17/19 11:32 BP 115/59 L 11/17/19 11:32 Pulse Ox 94 L 11/17/19 11:32 Weight - Most Recent: 130.635 kg I&O - Last 24 Hours: Intake & Output 11/16/19 11/17/19 11/17/19 22:59 06:59 14:59 Intake Total 240 700 Balance 240 700 Lab Results Last 24 Hours: Laboratory Results - last 24 hr 11/16/19 11/16/19 11/16/19 Range/Units 17:25 17:25 17:25 WBC 18.2 H (4.5-11.0) K/uL RBC 4.65 (4.30-5.90) M/uL Hgb 13.0 (12.0-15.0) g/dL Hct 41.4 (40.0-54.0) % MCV 89 (80-98) fL MCH 28 (27-31) pg MCHC 31 L (32-36) % Plt Count 293 (150-400) K/uL Neut % (Auto) (36-66) % Lymph % (Auto) (24-44) % [place] % (Auto) (2-6) % Eos % (Auto) (2-4) % Baso % (Auto) (0-1) % PT 17.0 H (9.5-12.0) sec INR 1.62 H D (0.80-1.20) Sodium 131 L (140-148) mmol/L Potassium 4.4 (3.6-5.2) mmol/L Chloride 96 L (100-108) mmol/L Carbon Dioxide 27 (21-32) mmol/L Anion Gap 12.4 (5.0-14.0) mmol/L BUN 18 D (7-18) mg/dL Creatinine 1.3 (0.8-1.3) mg/dL Est Cr Clr Drug Dosing 65.16 mL/min Estimated GFR (MDRD) 57 L (>60) Glucose 57 L (74-106) mg/dL Lactic Acid (0.4-2.0) mmol/L Calcium 8.1 L (8.5-10.1) mg/dL C-Reactive Protein (0.0-0.3) mg/dL 11/16/19 11/16/19 11/17/19 Range/Units 17:25 17:25 05:41 WBC 15.0 H (4.5-11.0) K/uL RBC 4.08 L (4.30-5.90) M/uL Hgb 11.4 L (12.0-15.0) g/dL Hct 37.1 L (40.0-54.0) % MCV 91 (80-98) fL MCH 28 (27-31) pg MCHC 31 L (32-36) % Plt Count 279 (150-400) K/uL Neut % (Auto) 81 H (36-66) % Lymph % (Auto) 10 L (24-44) % [place] % (Auto) 8 H (2-6) % Eos % (Auto) 1 L (2-4) % Baso % (Auto) 0 (0-1) % PT (9.5-12.0) sec INR (0.80-1.20) Sodium (140-148) mmol/L Potassium (3.6-5.2) mmol/L Chloride (100-108) mmol/L Carbon Dioxide (21-32) mmol/L Anion Gap (5.0-14.0) mmol/L BUN (7-18) mg/dL Creatinine (0.8-1.3) mg/dL Est Cr Clr Drug Dosing mL/min Estimated GFR (MDRD) (>60) Glucose (74-106) mg/dL Lactic Acid 1.3 (0.4-2.0) mmol/L Calcium (8.5-10.1) mg/dL C-Reactive Protein 18.43 H (0.0-0.3) mg/dL 11/17/19 11/17/19 Range/Units 05:41 05:41 WBC (4.5-11.0) K/uL RBC (4.30-5.90) M/uL Hgb (12.0-15.0) g/dL Hct (40.0-54.0) % MCV (80-98) fL MCH (27-31) pg MCHC (32-36) % Plt Count (150-400) K/uL Neut % (Auto) (36-66) % Lymph % (Auto) (24-44) % [place] % (Auto) (2-6) % Eos % (Auto) (2-4) % Baso % (Auto) (0-1) % PT 19.8 H (9.5-12.0) sec INR 1.90 H (0.80-1.20) Sodium 133 L (140-148) mmol/L Potassium 4.7 (3.6-5.2) mmol/L Chloride 101 (100-108) mmol/L Carbon Dioxide 28 (21-32) mmol/L Anion Gap 8.7 (5.0-14.0) mmol/L BUN 15 (7-18) mg/dL Creatinine 1.1 (0.8-1.3) mg/dL Est Cr Clr Drug Dosing 77.01 mL/min Estimated GFR (MDRD) > 60 (>60) Glucose 80 (74-106) mg/dL Lactic Acid (0.4-2.0) mmol/L Calcium 7.7 L (8.5-10.1) mg/dL C-Reactive Protein (0.0-0.3) mg/dL Manuel Results Last 24 Hours: Microbiology 11/16/19 18:25 Aerobic Blood Culture - Preliminary Blood - Arm, Left Med Orders - Current: Current Medications Acetaminophen (Tylenol) 650 mg PO Q4H PRN PRN Reason: Pain (Mild 1-3)/fever Last Admin: 11/17/19 07:45 Dose: 650 mg Hydrocodone Bitart/Acetaminophen ([place] 325-7.5 Mg) 1 tab PO Q4H PRN PRN Reason: Pain Last Admin: 11/16/19 21:15 Dose: 1 tab Albuterol (Proventil Neb Soln) 2.5 mg NEB Q4H PRN PRN Reason: Shortness Of Breath/wheezing Alogliptin Benzoate (Alogliptin) 25 mg PO DAILY [facility] Last Admin: 11/17/19 08:10 Dose: 25 mg Cyclobenzaprine HCl (Flexeril) 10 mg PO TID PRN PRN Reason: Muscle Spasm Docusate Sodium (Colace) 100 mg PO BID PRN PRN Reason: Constipation Glyburide (Micronase) 5 mg PO BID [facility] Last Admin: 11/17/19 08:13 Dose: 5 mg Vancomycin HCl 2 gm/ Sodium (Chloride) 500 mls @ 250 mls/hr IV Q12H [facility] Last Admin: 11/17/19 08:39 Dose: 250 mls/hr Insulin Human Lispro (Humalog) 0 unit SUBCUT QIDACANDBED [facility]; Protocol Last Admin: 11/17/19 11:33 Dose: Not Given Lisinopril (Prinivil) 5 mg PO DAILY [facility] Last Admin: 11/17/19 08:10 Dose: 5 mg Lorazepam (Ativan) 1 mg IV Q6H PRN PRN Reason: Nausea/Vomiting Nicotine Polacrilex (Nicorelief) 2 mg CHEW Q1H PRN PRN Reason: Withdrawal Symptoms Ondansetron HCl (Zofran Odt) 4 mg PO Q6H PRN PRN Reason: Nausea able to take PO Simvastatin (Zocor) 10 mg PO BEDTIME SHI Temazepam (Restoril) 15 mg PO BEDTIME PRN PRN Reason: Sleep Discontinued Medications Hydrocodone Bitart/Acetaminophen ([place] 325-7.5 Mg) 1 tab PO ASDIRECTED PRN PRN Reason: Pain Cyclobenzaprine HCl (Flexeril) 10 mg PO TID SHI Furosemide (Lasix) 40 mg PO BIDDIURETIC [facility] Last Admin: 11/17/19 08:10 Dose: 40 mg Hydromorphone HCl (Dilaudid) 1 mg IVPUSH ONETIME ONE Stop: 11/16/19 19:34 Last Admin: 11/16/19 19:47 Dose: 1 mg Lactated Ringer's (Ringers, Lactated) 1,000 mls @ 1,000 mls/hr IV BOLUS ONE Stop: 11/16/19 18:10 Last Admin: 11/16/19 17:27 Dose: 1,000 mls/hr Ceftriaxone Sodium 1 gm/ (Sodium Chloride) 50 mls @ 100 mls/hr IV ONETIME ONE Stop: 11/16/19 18:49 Last Admin: 11/16/19 18:35 Dose: 100 mls/hr Vancomycin HCl 2 gm/ Sodium (Chloride) 500 mls @ 250 mls/hr IV ONETIME ONE Stop: 11/16/19 20:20 Last Admin: 11/16/19 19:22 Dose: 250 mls/hr Ceftriaxone Sodium 1 gm/ (Sodium Chloride) 50 mls @ 100 mls/hr IV Q24H [facility] Sodium Chloride (Normal Saline) 1,000 mls @ 125 mls/hr IV ASDIRECTED [facility] Last Admin: 11/17/19 05:28 Dose: 125 mls/hr Nicotine (Habitrol) 21 mg TRDERM ONETIME ONE Stop: 11/16/19 20:35 Last Admin: 11/16/19 20:59 Dose: 21 mg Ondansetron HCl (Zofran) 4 mg IVPUSH ONETIME ONE Stop: 11/16/19 19:34 Last Admin: 11/16/19 19:47 Dose: 4 mg Vancomycin HCl (Vancomycin) Confirm Administered Dose 2 gm .ROUTE .STK-MED ONE Stop: 11/16/19 19:01 Last Admin: 11/16/19 19:06 Dose: Not Given Vancomycin HCl (Vancomycin) 2 gm IV .PHARMACY TO DOSE [facility] Warfarin Sodium (Coumadin) 7.5 mg PO TuSa@1300 [facility] Warfarin Sodium (Coumadin) 10 mg PO SuMoWeThFr@1300 [facility] - Exam Quality Assessment: No: Supplemental Oxygen General: Alert, Oriented, Cooperative, No Acute Distress Lungs: Normal Respiratory Effort Cardiovascular: Regular Rate, Regular Rhythm GI/Abdominal Exam: Soft, No Distention Extremities: Pedal Edema (R>L), Increased Warmth (right mid lower leg and calf) Skin: Warm, Dry, Rash (diffuse maculopapular rash, most intense on dorsal surfaces and abdomen ) Psy/Mental Status: Alert, Normal Affect Sepsis Event Note - Evaluation Sepsis Screening Result: Sepsis Risk - Focused Exam Vital Signs: Vital Signs Temp Temp Pulse Resp BP BP Pulse Ox 11/17/19 11:32 37.8 C 81 18 115/59 L 94 L 11/17/19 08:15 38.3 C H 11/17/19 08:10 128/62 11/17/19 07:00 38.4 C H 100 16 128/68 89 L 11/17/19 02:49 37.3 C 90 18 139/67 91 L Date Exam was Performed: 11/17/19 Time Exam was Performed: 15:03 - Problem List Review Problem List Initiated/Reviewed/Updated: Yes - My Orders Last 24 Hours: My Active Orders 11/17/19 11:53 Convert IV to Saline Lock [OM.PC] Routine 11/17/19 11:54 Up With Assistance [RC] ASDIRECTED methylPREDNISolone Sod Succ [Solu-MEDROL] 125 mg IVPUSH ONETIME ONE 11/17/19 11:55 Communication Order [RC] DAILY 11/17/19 12:00 Nicotine [Habitrol] 21 mg TRDERM DAILY 11/17/19 13:00 Warfarin [Coumadin] 7.5 mg PO DAILY@1300 11/17/19 18:00 cefTRIAXone [Rocephin] 2 gm Sodium Chloride 0.9% [Normal Saline] 50 ml IV Q24H 11/18/19 05:00 BASIC METABOLIC PANEL,BMP [CHEM] Timed CBC W/O DIFF,HEMOGRAM [HEME] Timed (1) INR,PT,PROTHROMBIN TIME [COAG] Timed - Plan Plan:: ASSESSMENT AND PLAN - CELLULITIS RIGHT LOWER LEGS-recurrent issue. Patient has ulceration behind the right knee which does not appear to be acutely infected but does have some open areas on the right lower leg where the most significant redness, warmth and swelling over side. He does have 1 blood culture which is positive for gram- positive cocci. -IV ceftriaxone 2 gram every 24 hours -IV Vancomycin 2 grams every 24 hours -wound care consult -daily dressing change Follow-up blood cultures- DIABETES MELLITUS TYPE 2-sugars acceptable so far. -Restart metformin -continue home medication -blood glucose testing before meals and at bedtime -low dose sliding scale insulin Diffuse maculopapular rash-suspicious for drug rash. Most likely culprit would be antibiotics. Second potential culprit could be his furosemide. -Avoid doxycycline -Hold furosemide -Dose of Solu-Medrol today Hx of DVT-INR slightly subtherapeutic. -Coumadin daily -INR/PT daily TOBACCO USE - smoke one pack per day. -Nicotine patch 21 mg daily -Nicotine gum prn. MAINTENANCE ISSUES -DVT prophylaxis; coumadin -GI prophylaxis; Protonix 40mg daily -Rivas catheter; not indicated -Nutrition; consistent carb diet -Nicotine dependence; patch and gum ordered DISPOSITION-anticipate discharge to home after the hospital stay. Greg Win MD
[2019-11-17] MEDS ORDERED: methylPREDNISolone Sodium Succinate 125 MG/2 ML SDV IVPUSH ONE (12:10)
[2019-11-17] MEDS ORDERED: Warfarin 2.5 MG Tab PO SCH (13:00)
[2019-11-17] MEDS ORDERED: Warfarin 5 MG Tab PO SCH (13:00)
[2019-11-17] MEDS: Warfarin 5 MG, Warfarin 2.5 MG PO SCH ×2 (13:31)
[2019-11-17] MEDS: Nicotine 21 MG/24 Hr Patch TRDERM SCH (17:37)
[2019-11-17] MEDS: cefTRIAXone 2 GM in Sodium Chloride 0.9% 50 ML IV SCH (17:38)
[2019-11-17] MEDS ORDERED: cefTRIAXone 1 GM in Sodium Chloride 0.9% 50 ML IV SCH (18:00)
[2019-11-17] MEDS ORDERED: Vancomycin 1 GM SDV IV SCH (20:00)
[2019-11-17] MEDS: Simvastatin 20 MG Tab PO SCH (20:22)
[2019-11-17] MEDS: Acetaminophen/HYDROcodone 325-7.5 MG Tab PO PRN (20:27)
[2019-11-18] MEDS: Insulin Lispro 100 Unit/ML 3 ML KwikPen SUBCUT SCH ×4 (07:37→20:57)
[2019-11-18] MEDS: Acetaminophen/HYDROcodone 325-7.5 MG Tab PO PRN ×2 (07:39→21:34)
[2019-11-18] MEDS: Vancomycin 2 GM in Sodium Chloride 0.9% 500 ML IV SCH ×2 (08:23→19:59)
[2019-11-18] MEDS: Lisinopril 5 MG Tab PO SCH (08:27)
--- NOTE | 2019-11-18 10:23 | PCM.PN ---
- General Info Date of Service: 11/18/19 Subjective Update: No acute events overnight. No fevers overnight. Minimal pain in the right calf area. Blood sugars acceptable. Appetite has been good. Tolerating current antibiotics. Blood culture with gram-positive cocci but identification is still pending. Functional Status: Reports: Pain Controlled, Tolerating Diet - Review of Systems General: Denies: Fever - Patient Data Vitals - Most Recent: Last Vital Signs Temp 36.7 C 11/18/19 07:00 Pulse 71 11/18/19 07:00 Resp 18 11/18/19 07:00 BP 135/73 11/18/19 08:27 Pulse Ox 93 L 11/18/19 07:00 Weight - Most Recent: 130.635 kg I&O - Last 24 Hours: Intake & Output 11/17/19 11/18/19 11/18/19 22:59 06:59 14:59 Intake Total 790 800 900 Output Total 400 850 Balance 390 800 50 Lab Results Last 24 Hours: Laboratory Results - last 24 hr 11/18/19 11/18/19 11/18/19 Range/Units 04:45 04:45 04:45 WBC 9.4 (4.5-11.0) K/uL RBC 4.22 L (4.30-5.90) M/uL Hgb 11.7 L (12.0-15.0) g/dL Hct 38.1 L (40.0-54.0) % MCV 90 (80-98) fL MCH 28 (27-31) pg MCHC 31 L (32-36) % Plt Count 295 (150-400) K/uL PT 19.6 H (9.5-12.0) sec INR 1.88 H (0.80-1.20) Sodium 135 L (140-148) mmol/L Potassium 4.6 (3.6-5.2) mmol/L Chloride 102 (100-108) mmol/L Carbon Dioxide 25 (21-32) mmol/L Anion Gap 12.6 (5.0-14.0) mmol/L BUN 18 (7-18) mg/dL Creatinine 0.8 (0.8-1.3) mg/dL Est Cr Clr Drug Dosing 105.89 mL/min Estimated GFR (MDRD) > 60 (>60) Glucose 172 H (74-106) mg/dL Calcium 8.3 L (8.5-10.1) mg/dL Vancomycin Trough (10.0-20.0) ug/mL 11/18/19 Range/Units 07:25 WBC (4.5-11.0) K/uL RBC (4.30-5.90) M/uL Hgb (12.0-15.0) g/dL Hct (40.0-54.0) % MCV (80-98) fL MCH (27-31) pg MCHC (32-36) % Plt Count (150-400) K/uL PT (9.5-12.0) sec INR (0.80-1.20) Sodium (140-148) mmol/L Potassium (3.6-5.2) mmol/L Chloride (100-108) mmol/L Carbon Dioxide (21-32) mmol/L Anion Gap (5.0-14.0) mmol/L BUN (7-18) mg/dL Creatinine (0.8-1.3) mg/dL Est Cr Clr Drug Dosing mL/min Estimated GFR (MDRD) (>60) Glucose (74-106) mg/dL Calcium (8.5-10.1) mg/dL Vancomycin Trough 15.6 (10.0-20.0) ug/mL Manuel Results Last 24 Hours: Microbiology 11/16/19 18:25 Aerobic Blood Culture - Preliminary Blood - Arm, Left Anaerobic Blood Culture - Preliminary NO GROWTH AFTER 1 DAY 11/16/19 18:35 Aerobic Blood Culture - Preliminary Blood - Arm, Left NO GROWTH AFTER 1 DAY Anaerobic Blood Culture - Preliminary NO GROWTH AFTER 1 DAY Med Orders - Current: Current Medications Acetaminophen (Tylenol) 650 mg PO Q4H PRN PRN Reason: Pain (Mild 1-3)/fever Last Admin: 11/17/19 07:45 Dose: 650 mg Hydrocodone Bitart/Acetaminophen ([place] 325-7.5 Mg) 1 tab PO Q4H PRN PRN Reason: Pain Last Admin: 11/18/19 07:39 Dose: 1 tab Albuterol (Proventil Neb Soln) 2.5 mg NEB Q4H PRN PRN Reason: Shortness Of Breath/wheezing Alogliptin Benzoate (Alogliptin) 25 mg PO DAILY SHI Last Admin: 11/18/19 08:27 Dose: 25 mg Cyclobenzaprine HCl (Flexeril) 10 mg PO TID PRN PRN Reason: Muscle Spasm Docusate Sodium (Colace) 100 mg PO BID PRN PRN Reason: Constipation Glyburide (Micronase) 5 mg PO BID [facility] Last Admin: 11/18/19 08:27 Dose: 5 mg Vancomycin HCl 2 gm/ Sodium (Chloride) 500 mls @ 250 mls/hr IV Q12H [facility] Last Admin: 11/18/19 08:23 Dose: 250 mls/hr Ceftriaxone Sodium 2 gm/ (Sodium Chloride) 50 mls @ 100 mls/hr IV Q24H [facility] Last Admin: 11/17/19 17:38 Dose: 100 mls/hr Insulin Human Lispro (Humalog) 0 unit SUBCUT QIDACANDBED [facility]; Protocol Last Admin: 11/18/19 07:37 Dose: Not Given Lisinopril (Prinivil) 5 mg PO DAILY [facility] Last Admin: 11/18/19 08:27 Dose: 5 mg Lorazepam (Ativan) 1 mg IV Q6H PRN PRN Reason: Nausea/Vomiting Nicotine (Habitrol) 21 mg TRDERM Q24H [facility] Last Admin: 11/17/19 17:37 Dose: 21 mg Nicotine Polacrilex (Nicorelief) 2 mg CHEW Q1H PRN PRN Reason: Withdrawal Symptoms Ondansetron HCl (Zofran Odt) 4 mg PO Q6H PRN PRN Reason: Nausea able to take PO Simvastatin (Zocor) 10 mg PO BEDTIME [facility] Last Admin: 11/17/19 20:22 Dose: 10 mg Temazepam (Restoril) 15 mg PO BEDTIME PRN PRN Reason: Sleep Warfarin Sodium 5 mg/ Warfarin (Sodium 2.5 mg) 7.5 mg PO DAILY@1300 [facility] Last Admin: 11/17/19 13:31 Dose: 7.5 mg Discontinued Medications Hydrocodone Bitart/Acetaminophen ([place] 325-7.5 Mg) 1 tab PO ASDIRECTED PRN PRN Reason: Pain Cyclobenzaprine HCl (Flexeril) 10 mg PO TID [facility] Furosemide (Lasix) 40 mg PO BIDDIURETIC [facility] Last Admin: 11/17/19 08:10 Dose: 40 mg Hydromorphone HCl (Dilaudid) 1 mg IVPUSH ONETIME ONE Stop: 11/16/19 19:34 Last Admin: 11/16/19 19:47 Dose: 1 mg Lactated Ringer's (Ringers, Lactated) 1,000 mls @ 1,000 mls/hr IV BOLUS ONE Stop: 11/16/19 18:10 Last Admin: 11/16/19 17:27 Dose: 1,000 mls/hr Ceftriaxone Sodium 1 gm/ (Sodium Chloride) 50 mls @ 100 mls/hr IV ONETIME ONE Stop: 11/16/19 18:49 Last Admin: 11/16/19 18:35 Dose: 100 mls/hr Vancomycin HCl 2 gm/ Sodium (Chloride) 500 mls @ 250 mls/hr IV ONETIME ONE Stop: 11/16/19 20:20 Last Admin: 11/16/19 19:22 Dose: 250 mls/hr Ceftriaxone Sodium 1 gm/ (Sodium Chloride) 50 mls @ 100 mls/hr IV Q24H [facility]I Sodium Chloride (Normal Saline) 1,000 mls @ 125 mls/hr IV ASDIRECTED [facility] Last Admin: 11/17/19 05:28 Dose: 125 mls/hr Methylprednisolone Sodium Succinate (Solu-Medrol) 125 mg IVPUSH ONETIME ONE Stop: 11/17/19 12:11 Last Admin: 11/17/19 13:31 Dose: 125 mg Nicotine (Habitrol) 21 mg TRDERM ONETIME ONE Stop: 11/16/19 20:35 Last Admin: 11/16/19 20:59 Dose: 21 mg Ondansetron HCl (Zofran) 4 mg IVPUSH ONETIME ONE Stop: 11/16/19 19:34 Last Admin: 11/16/19 19:47 Dose: 4 mg Vancomycin HCl (Vancomycin) Confirm Administered Dose 2 gm .ROUTE .STK-MED ONE Stop: 11/16/19 19:01 Last Admin: 11/16/19 19:06 Dose: Not Given Vancomycin HCl (Vancomycin) 2 gm IV .PHARMACY TO DOSE [facility] Warfarin Sodium (Coumadin) 7.5 mg PO TuSa@1300 [facility] Warfarin Sodium (Coumadin) 10 mg PO SuMoWeThFr@1300 [facility] - Exam Quality Assessment: No: Supplemental Oxygen General: Alert, Oriented, Cooperative, No Acute Distress Lungs: Normal Respiratory Effort Cardiovascular: Regular Rate, Regular Rhythm GI/Abdominal Exam: Soft, No Distention Extremities: Pedal Edema (R>L), Increased Warmth (right lower leg, mild ) Skin: Warm, Dry, Other (chronic venous stasis changes both legs from mid sibley to foot. ) Psy/Mental Status: Alert, Normal Affect Sepsis Event Note - Evaluation Sepsis Screening Result: No Definite Risk - Focused Exam Vital Signs: Vital Signs Temp Pulse Resp BP BP Pulse Ox 11/18/19 08:27 135/73 11/18/19 07:00 36.7 C 71 18 135/73 93 L 11/18/19 03:00 37.0 C 75 16 154/84 H 95 11/17/19 22:55 37.1 C 73 20 144/68 H 90 L Date Exam was Performed: 11/18/19 Time Exam was Performed: 14:06 - Problem List Review Problem List Initiated/Reviewed/Updated: Yes - My Orders Last 24 Hours: My Active Orders 11/17/19 11:53 Convert IV to Saline Lock [OM.PC] Routine 11/17/19 11:54 Up With Assistance [RC] ASDIRECTED 11/17/19 11:55 Communication Order [RC] DAILY 11/17/19 13:00 Warfarin [Coumadin] 7.5 mg PO DAILY@1300 11/17/19 18:00 Nicotine [Habitrol] 21 mg TRDERM Q24H cefTRIAXone [Rocephin] 2 gm Sodium Chloride 0.9% [Normal Saline] 50 ml IV Q24H 11/18/19 10:16 Wound Care [RC] ASDIRECTED 11/19/19 05:00 BASIC METABOLIC PANEL,BMP [CHEM] Timed CBC W/O DIFF,HEMOGRAM [HEME] Timed (1) - Plan Plan:: ASSESSMENT AND PLAN - CELLULITIS RIGHT LOWER LEGS-recurrent issue. Clinically improving with less warmth and erythema. Blood culture still pending but currently growing gram- positive cocci. -IV ceftriaxone -IV Vancomycin -wound care consult -daily dressing change -Follow-up blood cultures DIABETES MELLITUS TYPE 2-sugars acceptable so far. -Continue metformin -continue home medication -blood glucose testing before meals and at bedtime -low dose sliding scale insulin Diffuse maculopapular rash-suspicious for drug rash. Most likely culprit would be antibiotics. Second potential culprit could be his furosemide. Rash is stable today. -Avoid doxycycline -Hold furosemide Hx of DVT-INR slightly subtherapeutic. -Coumadin daily -INR/PT daily TOBACCO USE - smoke one pack per day. -Nicotine patch 21 mg daily -Nicotine gum prn. MAINTENANCE ISSUES -DVT prophylaxis; coumadin -GI prophylaxis; Protonix 40mg daily -Rivas catheter; not indicated -Nutrition; consistent carb diet -Nicotine dependence; patch and gum ordered DISPOSITION-anticipate discharge to home after the hospital stay. Greg Win MD
[2019-11-18] MEDS: Warfarin 5 MG, Warfarin 2.5 MG PO SCH ×2 (12:39)
[2019-11-18] MEDS: metFORMIN 500 MG Tab PO SCH (16:22)
[2019-11-18] MEDS: Nicotine 21 MG/24 Hr Patch TRDERM SCH (18:16)
[2019-11-18] MEDS: cefTRIAXone 2 GM in Sodium Chloride 0.9% 50 ML IV SCH (18:17)
[2019-11-18] MEDS: Simvastatin 20 MG Tab PO SCH (21:33)
[2019-11-19] MEDS: metFORMIN 500 MG Tab PO SCH (07:13)
[2019-11-19] MEDS: Insulin Lispro 100 Unit/ML 3 ML KwikPen SUBCUT SCH (08:15)
[2019-11-19] MEDS: Lisinopril 5 MG Tab PO SCH (10:03)
--- NOTE | 2019-11-19 11:40 | PCM.DCSUM1 ---
Discharge Summary - Hospital Course Brief History: 59-year-old male with history of type 2 diabetes mellitus, tobacco dependence, previous bilateral DVT with lymphedema and recent cellulitis who presented with lightheadedness and diaphoresis. He was admitted for management of cellulitis of the right lower leg. Diagnosis: Stroke: No - Discharge Data Discharge Date: 11/19/19 Discharge Disposition: Home, Self-Care 01 Condition: Good - Referral to Home Health Primary Care Physician: Fred Ryan MD - Discharge Diagnosis/Problem(s) (1) Cellulitis of right lower extremity SNOMED Code(s): 540767605 ICD Code: L03.115 - CELLULITIS OF RIGHT LOWER LIMB Status: Acute (2) DM II (diabetes mellitus, type II), controlled SNOMED Code(s): 88014312, 567211646 ICD Code: E11.9 - TYPE 2 DIABETES MELLITUS WITHOUT COMPLICATIONS Status: Chronic Priority: High Qualifiers: Diabetes mellitus care home insulin use: without supervisor long goods use Diabetes mellitus complication status: with neurologic complications Diabetes mellitus complication detail: with polyneuropathy Qualified Code(s): E11.42 - Type 2 diabetes mellitus with diabetic polyneuropathy (3) Tobacco dependence SNOMED Code(s): 70999822 ICD Code: F17.200 - NICOTINE DEPENDENCE, UNSPECIFIED, UNCOMPLICATED Status : Chronic Priority: High (4) Hx of deep venous thrombosis SNOMED Code(s): 123016209 ICD Code: Z86.718 - PERSONAL HISTORY OF OTHER VENOUS THROMBOSIS AND EMBOLISM Status: Acute Priority: High - Patient Summary/Data Consults: Consultations 11/16/19 20:34 Consult to Physician [CONS] Routine Consulting Provider: Mehdi Lee Call Completed to Consulting Physician: No Reason for Consult: bilateral leg cellulitis Hospital Course: Michael presented to the wound care clinic for routine follow-up and a dressing change. During the visit he was noted to have increased swelling, redness, warmth and drainage from the right lower extremity. The patient reported that he had been febrile to more than 101 degrees the night before. He was sent to the hospital for emergency room evaluation. He was started on broad-spectrum antibiotics because of recent antibiotic use. Cultures were obtained in the emergency room. Overnight following admission there were no acute issues. Legs were reassessed the next day with no dramatic interval change. We did continue broad-spectrum antibiotics. 1 of his blood cultures did return positive with a gram-positive cocci. Broad-spectrum antibiotics were continued through the hospital stay until cultures were final. We did see some fairly impressive improvement in the redness, warmth and to a lesser extent the swelling. Patient had one fever the night of admission but has been afebrile since then. His culture did eventually grow out a beta strep. Antibiotics have been transitioned to cephalexin. His blood sugars have been well controlled. Clinically he is feeling well with no physical complaints. He does have ongoing difficulty with his generalized rash which we suspect is a drug rash. Initially it was thought that this was related to doxycycline but it has not improved with a couple of weeks away from the medication. He had a course of prednisone a while back and this did not help. I did give him some Solu-Medrol during hospital stay and also put his furosemide on hold. This seems like the other most likely culprit to be causing the rash. On the day of discharge he is afebrile his vitals are stable and he is feeling well. He has a Coban wrap on his legs which will remain in place until his follow-up on Friday. Rash seems to be doing a little better at the time of discharge. All of his laboratory studies look good. He has wound care clinic follow-up on Friday, 3 days from now as well as 11 days from now in the wound care clinic. - Patient Instructions Diet: Diabetic Diet Activity: As Tolerated Showering/Bathing: May Shower Notify Provider of: Fever, Increased Pain, Swelling and Redness, Drainage, Nausea and/or Vomiting Other/Special Instructions: 1. You were in the hospital for management of cellulitis involving your right lower leg. Your condition has been improving with antibiotic therapy. We did determine that the causative bacteria was a beta strep. I recommend ongoing antibiotic therapy with cephalexin (Keflex). Please take 500 mg 3 times daily with food for 1 week. Your first dose outside of the hospital will be due around 2 PM. 2. Continue your usual home medications as previously prescribed. 3. Follow up as scheduled on Nov 22 and as scheduled with the Wound Care Clinic. Your leg wraps can remain in place until your follow-up on Friday with the wound care clinic. - Discharge Plan *PRESCRIPTION DRUG MONITORING PROGRAM REVIEWED*: Not Applicable *COPY OF PRESCRIPTION DRUG MONITORING REPORT IN PATIENT MANNY: Not Applicable Prescriptions/Med Rec: cephALEXin [Cephalexin] 500 mg PO TID #21 capsule Home Medications: Home Meds Aspirin 81 mg PO DAILY 10/19/19 [History] Furosemide 40 mg PO BID 10/19/19 [History] Hydrocodone/Acetaminophen [Hydrocodon-Acetaminoph 7.5-325] 1 tab PO ASDIRECTED PRN 10/19/19 [History] Simvastatin 10 mg PO DAILY 10/19/19 [History] SitaGLIPtin [Januvia] 100 mg PO DAILY 10/19/19 [History] Warfarin [Coumadin] 10 mg PO ASDIRECTED 10/19/19 [History] glyBURIDE [Glyburide] 5 mg PO BID 10/19/19 [History] lisinopriL [Lisinopril] 5 mg PO DAILY 10/19/19 [History] metFORMIN [Glucophage] 500 mg PO BID 10/19/19 [History] Warfarin [Coumadin] 7.5 mg PO DAILY 10/26/19 [History] cephALEXin [Cephalexin] 500 mg PO TID #21 capsule 11/19/19 [Rx] Oxygen Therapy Mode: Room Air Patient Handouts: Cellulitis, Adult, Cephalexin tablets or capsules Referrals: Mehdi Lee MD [Physician] - 11/30/19 10:00 am (Please arrive 15 minutes early to register for your appointment.) - Discharge Summary/Plan Comment DC Time >30 min.: No - Patient Data Vitals - Most Recent: Last Vital Signs Temp 36.3 C 11/19/19 10:54 Pulse 68 11/19/19 10:54 Resp 16 11/19/19 10:54 BP 152/78 H 11/19/19 10:54 Pulse Ox 95 11/19/19 10:54 Weight - Most Recent: 130.635 kg I&O - Last 24 hours: Intake & Output 11/18/19 11/19/19 11/19/19 22:59 06:59 14:59 Intake Total 1000 2236 Output Total 1225 8500 625 Balance -1225 -1250 1611 Lab Results - Last 24 hrs: Laboratory Results - last 24 hr 11/19/19 11/19/19 Range/Units 05:00 05:36 WBC 10.9 (4.5-11.0) K/uL RBC 4.38 (4.30-5.90) M/uL Hgb 12.4 (12.0-15.0) g/dL Hct 39.8 L (40.0-54.0) % MCV 91 (80-98) fL MCH 28 (27-31) pg MCHC 31 L (32-36) % Plt Count 354 (150-400) K/uL Sodium 139 L (140-148) mmol/L Potassium 4.3 (3.6-5.2) mmol/L Chloride 104 (100-108) mmol/L Carbon Dioxide 28 (21-32) mmol/L Anion Gap 11.3 (5.0-14.0) mmol/L BUN 18 (7-18) mg/dL Creatinine 0.8 (0.8-1.3) mg/dL Est Cr Clr Drug Dosing 105.89 mL/min Estimated GFR (MDRD) > 60 (>60) Glucose 52 L (74-106) mg/dL Calcium 8.3 L (8.5-10.1) mg/dL CINDY Results - Last 24 hrs: Microbiology 11/16/19 18:25 Aerobic Blood Culture - Final Blood - Arm, Left Beta Strep Not Group A Or B Anaerobic Blood Culture - Preliminary NO GROWTH AFTER 2 DAYS 11/16/19 18:35 Aerobic Blood Culture - Preliminary Blood - Arm, Left NO GROWTH AFTER 2 DAYS Anaerobic Blood Culture - Preliminary NO GROWTH AFTER 2 DAYS Med Orders - Current: Current Medications Acetaminophen (Tylenol) 650 mg PO Q4H PRN PRN Reason: Pain (Mild 1-3)/fever Last Admin: 11/17/19 07:45 Dose: 650 mg Hydrocodone Bitart/Acetaminophen ([place] 325-7.5 Mg) 1 tab PO Q4H PRN PRN Reason: Pain Last Admin: 11/18/19 21:34 Dose: 1 tab Albuterol (Proventil Neb Soln) 2.5 mg NEB Q4H PRN PRN Reason: Shortness Of Breath/wheezing Alogliptin Benzoate (Alogliptin) 25 mg PO DAILY SHI Last Admin: 11/19/19 10:03 Dose: 25 mg Cephalexin (Keflex) 500 mg PO TID [facility]I Cyclobenzaprine HCl (Flexeril) 10 mg PO TID PRN PRN Reason: Muscle Spasm Docusate Sodium (Colace) 100 mg PO BID PRN PRN Reason: Constipation Glyburide (Micronase) 5 mg PO BID [facility] Last Admin: 11/19/19 10:02 Dose: 5 mg Lisinopril (Prinivil) 5 mg PO DAILY [facility] Last Admin: 11/19/19 10:03 Dose: 5 mg Lorazepam (Ativan) 1 mg IV Q6H PRN PRN Reason: Nausea/Vomiting Metformin HCl (Glucophage) 500 mg PO BIDMEALS [facility] Last Admin: 11/19/19 07:13 Dose: 500 mg Nicotine (Habitrol) 21 mg TRDERM Q24H [facility] Last Admin: 11/18/19 18:16 Dose: 21 mg Nicotine Polacrilex (Nicorelief) 2 mg CHEW Q1H PRN PRN Reason: Withdrawal Symptoms Ondansetron HCl (Zofran Odt) 4 mg PO Q6H PRN PRN Reason: Nausea able to take PO Simvastatin (Zocor) 10 mg PO BEDTIME [facility] Last Admin: 11/18/19 21:33 Dose: 10 mg Temazepam (Restoril) 15 mg PO BEDTIME PRN PRN Reason: Sleep Warfarin Sodium 5 mg/ Warfarin (Sodium 2.5 mg) 7.5 mg PO DAILY@1300 [facility] Last Admin: 11/18/19 12:39 Dose: 7.5 mg Discontinued Medications Hydrocodone Bitart/Acetaminophen ([place] 325-7.5 Mg) 1 tab PO ASDIRECTED PRN PRN Reason: Pain Cyclobenzaprine HCl (Flexeril) 10 mg PO TID [facility] Furosemide (Lasix) 40 mg PO BIDDIURETIC [facility] Last Admin: 11/17/19 08:10 Dose: 40 mg Hydromorphone HCl (Dilaudid) 1 mg IVPUSH ONETIME ONE Stop: 11/16/19 19:34 Last Admin: 11/16/19 19:47 Dose: 1 mg Lactated Ringer's (Ringers, Lactated) 1,000 mls @ 1,000 mls/hr IV BOLUS ONE Stop: 11/16/19 18:10 Last Admin: 11/16/19 17:27 Dose: 1,000 mls/hr Ceftriaxone Sodium 1 gm/ (Sodium Chloride) 50 mls @ 100 mls/hr IV ONETIME ONE Stop: 11/16/19 18:49 Last Admin: 11/16/19 18:35 Dose: 100 mls/hr Vancomycin HCl 2 gm/ Sodium (Chloride) 500 mls @ 250 mls/hr IV ONETIME ONE Stop: 11/16/19 20:20 Last Admin: 11/16/19 19:22 Dose: 250 mls/hr Ceftriaxone Sodium 1 gm/ (Sodium Chloride) 50 mls @ 100 mls/hr IV Q24H [facility] Sodium Chloride (Normal Saline) 1,000 mls @ 125 mls/hr IV ASDIRECTED [facility] Last Admin: 11/17/19 05:28 Dose: 125 mls/hr Vancomycin HCl 2 gm/ Sodium (Chloride) 500 mls @ 250 mls/hr IV Q12H [facility] Last Admin: 11/18/19 19:59 Dose: 250 mls/hr Ceftriaxone Sodium 2 gm/ (Sodium Chloride) 50 mls @ 100 mls/hr IV Q24H [facility] Last Admin: 11/18/19 18:17 Dose: 100 mls/hr Insulin Human Lispro (Humalog) 0 unit SUBCUT QIDACANDBED [facility]; Protocol Last Admin: 11/19/19 08:15 Dose: Not Given Methylprednisolone Sodium Succinate (Solu-Medrol) 125 mg IVPUSH ONETIME ONE Stop: 11/17/19 12:11 Last Admin: 11/17/19 13:31 Dose: 125 mg Nicotine (Habitrol) 21 mg TRDERM ONETIME ONE Stop: 11/16/19 20:35 Last Admin: 11/16/19 20:59 Dose: 21 mg Ondansetron HCl (Zofran) 4 mg IVPUSH ONETIME ONE Stop: 11/16/19 19:34 Last Admin: 11/16/19 19:47 Dose: 4 mg Vancomycin HCl (Vancomycin) Confirm Administered Dose 2 gm .ROUTE .STK-MED ONE Stop: 11/16/19 19:01 Last Admin: 11/16/19 19:06 Dose: Not Given Vancomycin HCl (Vancomycin) 2 gm IV .PHARMACY TO DOSE [facility] Warfarin Sodium (Coumadin) 7.5 mg PO TuSa@1300 [facility] Warfarin Sodium (Coumadin) 10 mg PO SuMoWeThFr@1300 [facility] - Exam Quality Assessment: Denies: Supplemental Oxygen General: Reports: Alert, Oriented, Cooperative, No Acute Distress Lungs: Reports: Normal Respiratory Effort GI/Abdominal Exam: Soft, No Distention Extremities: Pedal Edema Psy/Mental Status: Reports: Alert, Normal Affect
[2019-11-19] MEDS ORDERED: Cephalexin 250 MG Cap PO SCH (14:00)
[2019-11-20] MEDS ORDERED: Warfarin 2.5 MG Tab PO SCH (13:00)
== END 2019-11-19 13:15 | disposition home or self-care (01) | DRG 420 ==
LOC: JP.ED 16:07 → JP.MS 19:42
PROVIDERS: ADMIT Hospitalist; ATTEND Internal Medicine
DX: E11.628 Type 2 diabetes mellitus with other skin complications (principal); L03.115 Cellulitis of right lower limb; E11.42 Type 2 diabetes mellitus with diabetic polyneuropathy; F17.200 Nicotine dependence, unspecified, uncomplicated; E78.00 Pure hypercholesterolemia, unspecified; I10 Essential (primary) hypertension; K59.09 Other constipation; Z68.41 Body mass index [BMI] 40.0-44.9, adult; E66.9 Obesity, unspecified; Z86.718 Personal history of other venous thrombosis and embolism; Z87.442 Personal history of urinary calculi; Z79.01 Long term (current) use of anticoagulants; Z79.84 Long term (current) use of oral hypoglycemic drugs; Z79.82 Long term (current) use of aspirin; Z79.899 Other long term (current) drug therapy
CPT/HCPCS: 36415; 80048; 80202; 82962; 83605; 85025; 85027; 85610; 86140; 87040; 96361; 96365; 96367; 99285-25; A9270-GY; J0696; J1170; J1815; J2405; J2930; J3370; J7030; J7040; J7050; J7120

== ENCOUNTER 2020-06-06 20:47 | Emergency (ER) | payer BC, OTHER ==
[2020-06-06] MEDS ORDERED: Sodium Chloride 0.9% 1,000 ML IV ONE (21:20)
[2020-06-06] MEDS ORDERED: Acetaminophen 325 MG Tab PO ONE (21:21)
[2020-06-06] MEDS ORDERED: Ketorolac 30 MG/ML SDV IVPUSH PRN (21:22)
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
[2020-06-06] MEDS ORDERED: Ondansetron 4 MG/2 ML SDV IVPUSH ONE (21:35)
[2020-06-06] MEDS ORDERED: cefTRIAXone 1 GM in Sodium Chloride 0.9% 50 ML IV ONE (22:21)
--- NOTE | 2020-06-06 22:43 | CRLCT ---
INDICATION: Left flank pain COMPARISON: None available TECHNIQUE: CT examination of the abdomen and pelvis was performed without contrast enhancement using 2 mm thick axial sections from the lung bases through the pubic symphysis. Oral contrast was not administered. Please note that all CT scans at this facility use dose modulation, iterative reconstruction, and/or weight-based dosing when appropriate to reduce radiation dose to as low as reasonably achievable. FINDINGS: In the abdomen, the unenhanced liver, spleen, pancreas, and adrenals are normal in appearance. There is a tiny 2 millimeter nonobstructive calculus in the anterior interpolar left kidney. There is no sign of any additional renal or ureteral calculi. There is no sign of left hydronephrosis or hydroureter. The right kidney and ureter are normal in appearance with no sign of obstruction or calculus. The gallbladder is normal in appearance. The abdominal aorta is normal in caliber with no sign of dilatation. There is no sign of retroperitoneal mass or adenopathy. The stomach, loops of small bowel, and colon in the abdomen are normal in appearance. In the pelvis, the appendix is normal in appearance with no sign of inflammatory process. There is moderate sigmoid diverticulosis without evidence of diverticulitis. The loops of small bowel and colon in the pelvis are otherwise normal in appearance. The prostate is mildly enlarged and is otherwise normal in appearance. The urinary bladder is normal in appearance. There is no sign of pelvic or inguinal mass or adenopathy. There is no sign of free air or free fluid in the abdomen or pelvis. The lung bases are clear. There is a metallic plate located along the right superior acetabulum from repair of an acetabular fracture, with no sign of any deformity. Screws are seen in the right greater trochanter from repair of a fracture with minimal deformity. Please note that there is a lumbarized S1 segment with a well-defined S1-S2 disc space. There is mild anterior wedging of the T11 through L1 vertebral bodies representing mild, age-indeterminate compression fractures. These are probably old. There is moderate disc degenerative disease from T10 through L3. There is minimal posterior subluxation of L2 on L3. IMPRESSION: Tiny 2 millimeter nonobstructive calculus in the interpolar region of the left kidney. No other abnormality seen in the left abdomen or pelvis to correlate with history of left flank pain. No sign of left hydronephrosis, hydroureter, or ureterolithiasis. There is moderate sigmoid diverticulosis with no sign of diverticulitis. CT of the abdomen shows no additional abnormality. CT of the pelvis shows mild enlargement of the prostate. Osseous findings as discussed above. Please note that all CT scans at this facility use dose modulation, iterative reconstruction, and/or weight-based dosing when appropriate to reduce radiation dose to as low as reasonably achievable. Dictated by Tai Hector MD @ Jun 06 2020 10:35PM Signed by Dr. Tai Hector @ Jun 06 2020 10:43PM
--- NOTE | 2020-06-07 09:01 | CR ---
CHEST: 2 view CLINICAL HISTORY:SOB COMPARISON:Heart size and pulmonary vascular normal. There is mild generalized prominence of the lung markings. Lungs are generally hyperaerated. There is some minimal patchy density in the right lower lobe. There are atherosclerotic changes in the aorta. FINDINGS: Chronic lung field changes Patchy right lower lobe density. Pneumonic infiltrate is not excluded.
== END 2020-06-07 00:10 | disposition critical access hospital (66) ==
LOC: JP.ED 20:47
DX: J18.9 Pneumonia, unspecified organism (principal); L03.115 Cellulitis of right lower limb; I10 Essential (primary) hypertension; E78.00 Pure hypercholesterolemia, unspecified; E11.9 Type 2 diabetes mellitus without complications; F17.210 Nicotine dependence, cigarettes, uncomplicated; E66.9 Obesity, unspecified; Z68.38 Body mass index [BMI] 38.0-38.9, adult; Z86.718 Personal history of other venous thrombosis and embolism; Z88.1 Allergy status to other antibiotic agents; Z79.82 Long term (current) use of aspirin; Z79.84 Long term (current) use of oral hypoglycemic drugs; Z79.01 Long term (current) use of anticoagulants; Z79.899 Other long term (current) drug therapy; Z20.828 Contact with and (suspected) exposure to other viral communicable diseases
CPT/HCPCS: 36415; 36600; 71046; 74176; 80053; 81003; 82803; 83605; 84145; 85025; 85379; 85610; 87040; 87635; 96365; 96375; 99285; A9270; J0696; J1885; J2405; J7040; J7050; U0002